=== PATIENT | female | born 1985 | race Two or more races ===

== ENCOUNTER 2017-02-14 08:18 | Day surgery (SDC) | payer MEDICARE, MEDICAID ==
[~2017-02-14 08:18] MED LIST: Lactated Ringers 1,000 ML IV SCH; Lidocaine 1%/Sod Bicarbonate in NS 8.4% 1 ML Syringe PRN; Sodium Chloride 0.9% 10 ML Syringe FLUSH PRN
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
[2017-02-14] MEDS ORDERED: Propofol 200 MG/20 ML SDV ONE (10:10)
[2017-02-14] MEDS ORDERED: Lidocaine 1% 2 ML ONE (10:10)
--- NOTE | 2017-02-14 10:38 | PCM.OPNOTE ---
- General Post-Op/Procedure Note Date of Surgery/Procedure: 02/14/17 Operative Procedure(s): colonoscopy with random cold forceps biopsy times 2 of the rectum Findings: Capacious colon but otherwise unremarkable Pre Op Diagnosis: chronic constipation Post-Op Diagnosis: Same as above Anesthesia Technique: MAC, Moderate Sedation Primary Surgeon: Lev Kwok Pathology: Rectal biopsy 2 EBL in mLs: 0 Complications: None Condition: Good Free Text/Narrative:: After adequate IV sedation and analgesia was obtained the patient was placed in the left lateral decubitus position with monitoring. Perianal inspection and digital rectal examination were performed next and were unremarkable. A lubricated colonoscope was inserted into the rectum then advanced under direct vision to the cecum. The colon was quite large in caliber. The cecum ascending colon transverse and descending colons were endoscopically normal with no mass lesions or inflammatory changes seen. The sigmoid and rectum are also unremarkable endoscopically. Because of her history I took 2 random biopsies of the rectum for histologic review. Photographs were taken for the patient and for the medical record. Air was removed as I finished the procedure which she tolerated well.
--- NOTE | 2017-02-14 10:40 | PCM48HPAN ---
Post Anesthesia Note - EVALUATION WITHIN 48HRS OF ANESTHETIC Vital Signs in Normal Range: Yes Patient Participated in Evaluation: Yes Respiratory Function Stable: Yes Airway Patent: Yes Cardiovascular Function Stable: Yes Hydration Status Stable: Yes Pain Control Satisfactory: Yes Nausea and Vomiting Control Satisfactory: Yes Mental Status Recovered: Yes
[2017-02-14] MEDS ORDERED: Metoprolol Tartrate 5 MG/5 ML SDV ONE (10:56)
[2017-02-14 11:44] VITALS: BP 132/88
== END 2017-02-14 11:15 | disposition home or self-care (01) ==
LOC: JD.SDS 08:18
PROVIDERS: ATTEND Surgery
DX: K62.89 Other specified diseases of anus and rectum (principal); G47.33 Obstructive sleep apnea (adult) (pediatric); E66.9 Obesity, unspecified; E03.9 Hypothyroidism, unspecified; F32.9 Major depressive disorder, single episode, unspecified; E11.9 Type 2 diabetes mellitus without complications; Z79.84 Long term (current) use of oral hypoglycemic drugs; Z79.899 Other long term (current) drug therapy; Z98.890 Other specified postprocedural states; Z68.41 Body mass index [BMI] 40.0-44.9, adult; Z91.018 Allergy to other foods
CPT/HCPCS: 45380; 82962; J7120; 00810; 88305; J2704; J3490